=== PATIENT | male | born 1955 | race Two or more races ===

== ENCOUNTER 2024-05-31 14:07 | Inpatient (IN) ==
[2024-05-31] MEDS: MoRPHine SULFATE 4 MG/ML 1 ML CARP\\VIAL IV STA (14:34)
[2024-05-31] MEDS: ONDANSETRON INJ 2 MG/ML 2 ML VIAL IV STA (14:34)
[2024-05-31] MEDS: SODIUM CHLORIDE 0.9% 1,000 ML IV ONE (14:34)
--- NOTE | 2024-05-31 14:39 | Emergency Department Note ---
Impression & Plan Lower abdominal pain, Ileostomy present ED Provider Note NAME: SALO FLORES AGE: 68 SEX: M : 1955 ARRIVES VIA: Walk-In INFORMANT: [Patient] ED PROVIDER(S): [Saroj Nesbitt MD] CHIEF COMPLAINT: Abdominal pain HISTORY OF PRESENT ILLNESS: The patient is a 68-year-old male who was prepping his colon for a colonoscopy with a fleets enema. He had severe pain and presents for evaluation. The patient does have an ileostomy. He was having the procedure in order to determine if his ileostomy could be reversed. The patient has had a previous bowel perforation, he feels that may be the case again today. There has been no vomiting, no cough or cold or congestion. He was doing well until the enema administration. PMHx/PSHx/Social Hx: See Below PHYSICAL EXAM: GENERAL: Patient is in mild distress from pain. HEENT: No acute trauma, normocephalic atraumatic, mucous membranes moist, no nasal congestion. NECK: No stridor, no adenopathy, no meningismus, trachea is midline. LUNGS: Clear to auscultation bilaterally, no wheeze, no rhonchi, breath sounds equal. HEART: Without murmurs gallops or rubs, regular rate and rhythm. ABDOMEN: Soft, significantly tender to the lower abdomen. There is an ileostomy on the right with stool in the bag. Multiple old scars across abdomen noted. EXTREMITIES: No cyanosis, full range of motion of all the joints without pain or difficulty. NEUROLOGIC: Oriented x 3, no acute motor or sensory deficits, no focal weakness. SKIN: No jaundice, no diaphoresis. DIFFERENTIAL DIAGNOSIS: Bowel perforation, bowel obstruction, UTI, diverticulitis, among others. EMERGENCY DEPARTMENT PROCEDURES: MEDICAL DECISION MAKING: There is no leukocytosis or concerning anemia. There is a normal platelet count. Chemistry panel is pending. Lipase is pending. ECG shows a normal sinus rhythm, no ischemia. Cardiac enzyme testing x 1 is not consistent with acute cardiac injury. Chest x-ray did not show pneumonia or free air. Abdominal and pelvis CT did not show any obvious bowel perforation. No bowel obstruction. No acute surgical process per CT imaging. On exam, the patient was quite uncomfortable. He was tender in the lower abdomen. He had an ileostomy which showed findings of stool in the ostomy bag. He was not hypotensive or febrile. The patient was aggressively managed. He received IV morphine for pain, IV Zofran for nausea, he was given a liter of IV saline. He received IV Zosyn as empiric antibiotic coverage. The patient was seen by general surgery here in the ED. The patient was not an acute surgical candidate. Admission, IV antibiotic therapy, observation was recommended. At this point, the cause for his presentation is not clear. He, however, is not safe for discharge home. Further workup/observation is warranted. I spoke with the patient and vocational case manager. The on-call hospitalist was consulted. Prior/Outside records/notes reviewed: None ECG per my interpretation: Indication was abdominal pain. The ECG shows a normal sinus rhythm with a rate of 73. There is no ST elevation, no PVCs. The QTc is 442. Continuous Cardiac Monitoring per my interpretation: An order was placed for continuous cardiac monitoring. The monitor shows a rate of 74 with normal sinus rhythm. Imaging/x-ray results per my interpretation: Chest x-ray shows some chronic change, no focal pneumonia, no free air. Chronic Medical/Social conditions affecting care: History of colostomy Care/Management discussed with: General Surgery-Dr. Monique Pitts. Case management and the on-call hospitalist. Level of care consideration(s): After review of the information above and other included data: --I believe the patient requires escalation of care to admission Critical Care Note: I have personally spent 46 minutes of critical care time in the direct management of this patient. This includes bedside care, interpretation of diagnostic studies, and testing, discussion with consultants, patient, and family members, and other required patient management activities. This 46 minutes is in excess of all separately billable procedures. DISPOSITION: Admission Past Med/Surg History Problem List Abdominal pain Encounter for pre-operative examination Arthralgia Medical History Poor historian History of hallucinations ~2014 - after having his colon resection or his hernia/colostomy surgery. unsure why he hallucinated. "no one ever explained anything to me". History of alcoholism quit "a few years ago" (~2021?) Hx of hepatitis follows with [facility] - thinks he has Hepatitis B? Osteoarthritis Degenerative disc disease Chronic back pain Emphysema of lung Chronic obstructive pulmonary disease stable with daily inhaler Asthma "mild" Sleep apnea recently diagnosed, awaiting for f/u with doctor. no machine currently Hx of diverticulitis of colon (2014) hx of seeing [facility] CKD (chronic kidney disease) stage 3a - follows with [facility] History of hemodialysis single episode (~2014) after having hernia repair and colostomy surgery. had a single hemodiaylsis occurrence ([facility]) Hyperlipidemia History of throat cancer ~2020? surgical intervention only. Depression Anxiety Surgical History History of tonsillectomy ~2020 - [facility] History of esophagogastroduodenoscopy (EGD) History of radical dissection of left side of neck 2020? pt unsure of year. treated at [facility]. Hx of hernia repair (2014) s/p colon resection - treated at [facility] in [place]. during hernia repair, pt unsure of details but woke up with a colostomy bag. no other details given. History of colostomy during hernia repair (~2014) at [facility] in [place] - pt unsure of details or reason. Hx of colonoscopy History of colon resection (2014) [facility] Family History Other No family history of adverse response to anesthesia Social History Smoking Status: Never smoker Tobacco Type: Cigarettes Age Started Using Tobacco: 18; packs per day: 1; Cigarettes Per Day: 1ppd/advised; Second Hand Exposure: No; Do You Dip or Chew Tobacco: No; Hx Substance Use: Yes Last Used Substance Other:: daily (aware of policy) Substance Use Type Other:: medical marijuana daily/aware of policy Preferred Language: Wolof Communication Ability: Effective Corporate Manager Required: No Beliefs That Will Affect Care: None Current Living Situation: Alone Feels Safe at Home: Yes Assistive Devices: Denture - Upper and Denture - Lower Allergies Allergies Allergy/AdvReac Type Severity Reaction Status Date / Time Iodinated Contrast Media Allergy Severe hives/rash Verified 05/31/24 12:53 bupropion [From Wellbutrin] AdvReac Severe suicidal Verified 05/31/24 12:53 ideation Home Meds Home Medications Medication Instructions Recorded Confirmed cholecalciferol (vitamin D3) 50 50 mcg PO QAM 11/15/23 05/31/24 mcg (2,000 unit) capsule cyanocobalamin (vitamin B-12) 1,000 mcg PO QAM 11/15/23 05/31/24 1,000 mcg capsule multivitamin 1 tab PO QAM 11/15/23 05/31/24 sertraline 100 mg tablet (Zoloft) 200 mg PO QAM 11/15/23 05/31/24 buspirone 10 mg tablet 10 mg PO BID 04/21/24 05/31/24 echinacea 125 mg capsule 125 mg PO QAM 04/21/24 05/31/24 ipratropium bromide 21 mcg (0.03 2 spray intranasal QAM 04/21/24 05/31/24 %) nasal spray olanzapine 15 mg tablet (Zyprexa) 15 mg PO HS Sleep 04/21/24 05/31/24 umeclidinium 62.5 mcg-vilanterol 1 inh inhalation QA 04/21/24 05/31/24 25 mcg/actuation powdr for inhalation (Anoro Ellipta) Results & Data (ED) Vital Signs Vital Signs - 24 hr 05/31/24 14:18 05/31/24 14:24 05/31/24 16:22 Temperature 36.5 C Temperature Source Oral Pulse Rate 73 74 Pulse Rate [Apical] 80 Respiratory Rate 18 23 Respiratory Effort / Characteristics Non-Labored Spontaneous Respiratory Depth Normal Blood Pressure 176/102 H Blood Pressure [Right Arm] 168/72 H Blood Pressure Mean 126 Blood Pressure Mean [Right Arm] 104 Blood Pressure Position Lying Pulse Oximetry 93 92 Oxygen Delivery Method Room Air Room Air Sepsis Recent Fever Within 48 Hours No Sepsis New/Unexplained Change in Mental Status No Sepsis Action Taken by Nursing No Action Required Home Medications Current Medication List: was personally reviewed by me Laboratory Data Attestation: I reviewed the patient's lab results. 05/31/24 14:19 05/31/24 16:25 Lab Results 05/31/24 05/31/24 Range/Units 14:19 16:25 WBC 9.76 (4.8-10.8) K/ul RBC 5.13 (4.70-6.10) M/uL Hgb 15.1 (14.0-18.0) g/dl Hct 43.6 (42.0-52.0) % MCV 85.0 (80.0-100.0) fL MCH 29.4 (25.0-34.0) pg MCHC 34.6 (32.0-36.0) g/dL RDW Std Deviation 41.1 (36.4-46.3) fL RDW Coeff of Renae 13.2 (11.5-14.5) % Plt Count 251 (130-400) K/uL MPV 11.1 (9.4-12.4) fL Immature Gran % (Auto) 0.1 % Neut % (Auto) 65.5 % Lymph % (Auto) 26.3 % [place] % (Auto) 5.2 % Eos % (Auto) 1.6 % Baso % (Auto) 1.3 % Neut # (Auto) 6.38 (1.40-6.50) K/uL Lymph # (Auto) 2.57 (1.20-3.40) K/uL [place] # (Auto) 0.51 (0.11-0.59) K/uL Eos # (Auto) 0.16 (0.00-0.50) K/uL Baso # (Auto) 0.13 (0.00-0.20) K/uL Immature Gran # (Auto) 0.01 (0.01-0.20) K/uL Sodium Cancelled Potassium Cancelled Chloride Cancelled Carbon Dioxide Cancelled Anion Gap Cancelled BUN Cancelled Creatinine Cancelled Est Cr Clr Drug Dosing Cancelled eGFR Cancelled BUN/Creatinine Ratio Cancelled Glucose Cancelled Calcium Cancelled Magnesium Cancelled Total Bilirubin Cancelled AST Cancelled ALT Cancelled Alkaline Phosphatase Cancelled Troponin I High Sens Cancelled 8.2 Total Protein Cancelled Albumin Cancelled Globulin Cancelled Albumin/Globulin Ratio Cancelled Lipase Cancelled Administered Medications Morphine Sulfate (Morphine Sulfate 4 Mg/Ml 1 Ml Carp\\Vial) 4 mg IV Q15M PRN PRN Reason: Pain Stop: 06/14/24 14:22 Last Admin: 05/31/24 15:26 Dose: 4 mg Documented By: JANIS Discontinued Medications Hydromorphone HCl (Hydromorphone Inj 0.5 Mg/0.5 Ml Syr) 0.25 mg IV NOW STA Stop: 05/31/24 17:13 Last Admin: 05/31/24 17:24 Dose: 0.25 mg Documented By: JANIS Sodium Chloride (Nss) 1,000 mls @ 999 mls/hr IV .Q1H1M ONE Stop: 05/31/24 15:23 Last Infusion: 05/31/24 17:45 Dose: Infused Documented By: Admin: 05/31/24 14:34 Dose: 999 mls/hr Documented By: PHIL Piperacillin Sod/Tazobactam Sod (Zosyn) 4.5 gm in 100 mls @ 200 mls/hr IV NOW ONE Stop: 05/31/24 15:34 Last Infusion: 05/31/24 15:59 Dose: Infused Documented By: Admin: 05/31/24 15:29 Dose: 200 mls/hr Documented By: JANIS Morphine Sulfate (Morphine Sulfate 4 Mg/Ml 1 Ml Carp\\Vial) 4 mg IV NOW STA Stop: 05/31/24 14:24 Last Admin: 05/31/24 14:34 Dose: 4 mg Documented By: PHIL Ondansetron HCl (Ondansetron Inj 2 Mg/Ml 2 Ml Vial) 4 mg IV NOW STA Stop: 05/31/24 14:24 Last Admin: 05/31/24 14:34 Dose: 4 mg Documented By: PHIL Imaging Data Radiologist's Impression: Abdomen/Pelvis CT 05/31/24 14:[address] WITHOUT CONTRAST CT DOSE: 868.74 mGy.cm HISTORY: Abdominal pain poss perf TECHNIQUE: Multiaxial CT images of the abdomen and pelvis were performed without contrast. Sagittal and coronal reconstructions were done. A dose lowering technique was utilized adhering to the principles of ALARA. COMPARISON STUDY: None FINDINGS: The lung bases are negative. The bone windows demonstrate bilateral L5 pars defects with a grade 1 spondylolisthesis of L5 on S1. There is no evidence of free air. There is pericolonic inflammation involving the splenic flexure of the colon with no associated diverticula identified. There is no evidence of bowel obstruction. There is a large ventral abdominal wall hernia containing numerous loops of large and small bowel. There is a stone in the neck of the gallbladder. There is no gallbladder wall thickening or pericholecystic fluid. There is no gallbladder or bile duct distention. There is no hepatic lesion identified on this noncontrast study. There is no hydronephrosis. There are bilateral renal vascular calcifications. There is fatty infiltration of both limbs of the left adrenal gland. The pancreas demonstrates fatty atrophy. There are no splenic lesions identified. There is no aortic aneurysm. The origin of the celiac axis is tortuous and ill- defined. 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 There is no aortic aneurysm. There is no periaortic adenopathy. In the pelvis, there is asymmetric thickening of the orona of the distal sigmoid colon suspicious for a mass. The appendix is not identified. There is mild diffuse bladder wall thickening. There is no significant prostate gland enlargement. IMPRESSION: No evidence of bowel obstruction or perforation. Pericolonic inflammation in the vicinity of the splenic flexure without a definite diverticulum present. Possibilities include occult diverticulitis, epiploic appendagitis and focal colitis. Asymmetric thickening of the wall of the sigmoid colon suspicious for a mass. Cholelithiasis. Large ventral abdominal wall hernia. 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 Please refer to the body the report for additional nonacute findings. ACT 112: Negative or not required by law. The above report was generated using voice recognition software. It may contain grammatical, syntax or spelling errors. Electronically signed by: Rossana Madrid M.D. 05/31/2024 3:17 PM Chest X-Ray 05/31/24 14:24 XR chest 1V portable CLINICAL HISTORY: abd pain COMPARISON STUDY: None FINDINGS: Single view portable chest demonstrates hyperlucency in the upper lung zones with diaphragmatic flattening suggesting emphysema. There is no focal airspace opacity or pleural effusion. There is no atelectasis or pneumothorax. The heart and pulmonary vascularity are unremarkable. IMPRESSION: No acute process; probable COPD. ACT 112: Negative or not required by law. Electronically signed by: Rossana Madrid M.D. 05/31/2024 3:18 PM Discharge Plan Visit Data Chief Complaint: Abdominal Pain Stated Complaint: ENDO LAB ED Provider: Saroj Nesbitt Discharge Problem: Lower abdominal pain, Ileostomy present Patient Disposition: Admitted As Inpatient Condition: Fair Forms Stand Alone Forms: Status Overload Prescriptions Prescriptions: No Action sertraline [Zoloft] 100 mg tablet 200 mg PO QAM cholecalciferol (vitamin D3) 50 mcg (2,000 unit) capsule 50 mcg PO QAM multivitamin Tablet 1 tab PO QAM cyanocobalamin (vitamin B-12) 1,000 mcg capsule 1,000 mcg PO QAM buspirone [BuSpar] 10 mg Tablet 10 mg PO BID olanzapine [Zyprexa] 15 mg Tablet 15 mg PO HS ipratropium bromide 21 mcg (0.03 %) [employer],Non-Aerosol 2 spray INTRANASAL QAM Rx Instructions: administer into each nostril Anoro Ellipta 62.5-25 mcg/actuation Blister With Device 1 inh INHALATION QAM echinacea 125 mg Capsule 125 mg PO QAM Rx Instructions: administer with meals Referrals Referrals: Graeme Méndez M.D. [Outside Practitioners] -
[2024-05-31 14:56] LABS: Basophils # (auto) 0.13 K/uL (0.00-0.20); Basophils % (auto) 1.3 %; Eosinophils # (auto) 0.16 K/uL (0.00-0.50); Eosinophils % (auto) 1.6 %; Hematocrit (blood only) 43.6 % (42.0-52.0); Hemoglobin 15.1 g/dl (14.0-18.0); Immature Granulocytes # (auto) 0.01 K/uL (0.01-0.20); Immature Granulocytes % (auto) 0.1 %; Lymphocytes # (auto) 2.57 K/uL (1.20-3.40); Lymphocytes % (auto) 26.3 %; Mean Corpuscular Hemoglobin 29.4 pg (25.0-34.0); Mean Corpuscular Hgb Conc 34.6 g/dL (32.0-36.0); Mean Platelet Volume 11.1 fL (9.4-12.4); Monocytes # (auto) 0.51 K/uL (0.11-0.59); Monocytes % (auto) 5.2 %; Neutrophils # (auto) 6.38 K/uL (1.40-6.50); Neutrophils % (auto) 65.5 %; Platelet Count 251 K/uL (130-400); RDW Coefficient of Variation 13.2 % (11.5-14.5); RDW Standard Deviation 41.1 fL (36.4-46.3); Red Blood Count 5.13 M/uL (4.70-6.10); White Blood Count 9.76 K/ul (4.8-10.8)
--- NOTE | 2024-05-31 15:19 | CT Scan Report ---
ABDOMEN AND PELVIS CT WITHOUT CONTRAST CT DOSE: 868.74 mGy.cm HISTORY: Abdominal pain poss perf TECHNIQUE: Multiaxial CT images of the abdomen and pelvis were performed without contrast. Sagittal and coronal reconstructions were done. A dose lowering technique was utilized adhering to the princip les of NAHUM. COMPARISON STUDY: None FINDINGS: The lung bases are negative. The bone windows demonstrate bilateral L5 pars defects with a grade 1 spondylolisthesis of L5 on S1. There is no evidence of free air. There is pericolonic inflammation involving the splenic flexure of the colon with no associated diverticula identified. There is no evidence of bowel obstruction. There is a large ventral abdominal wall hernia containing numerous loops of large and small bowel. There is a stone in the neck of the gallbladder. There is no gallbladder wall thickening or perichole cystic fluid. There is no gallbladder or bile duct distention. There is no hepatic lesion identified on this noncontrast study. There is no hydronephrosis. There ar e bilateral renal vascular calcifications. There is fatty infiltration of both limbs of the left adrenal gland. The pancreas demonstrates fatty atrophy. There are no splenic lesions identified. There is no aortic aneurysm. The origin of the celiac axis is tortuous and ill-defined. There is a fu siform aneurysm of the proximal superior mesenteric artery. There is no aortic aneurysm. There is no periaortic adenopathy. In the pelvis, there is asymmetric thickening of the orona of the distal sigmoid colon suspicious for a mass. The appendix is not identified. There is mild diffuse bladder wall thickening. There is no s ignificant prostate gland enlargement. IMPRESSION: No evidence of bowel obstruction or perforation. Pericolonic inflammation in the vicinity of the splenic flexure without a definite diverticulum prese nt. Possibilities include occult diverticulitis, epiploic appendagitis and focal colitis. Asymmetric thickening of the wall of the sigmoid colon suspicious for a mass. Cholelithiasis. Large ventral abdominal wall hernia. 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 Please refer to the body the report for additional nonacute findings. ACT 112: Negative or not required by law. The above report was generated using voice recognition software. It may contain grammatical, syntax o r spelling errors. Electronically signed by: Rossana Madrid M.D. 05/31/2024 3:17 PM
--- NOTE | 2024-05-31 15:20 | XRay Report ---
XR chest 1V portable CLINICAL HISTORY: abd pain COMPARISON STUDY: None FINDINGS: Single view portable chest demonstrates hyperlucency in the upper lung zones with diaphragm atic flattening suggesting emphysema. There is no focal airspace opacity or pleural effusion. There i s no atelectasis or pneumothorax. The heart and pulmonary vascularity are unremarkable. IMPRESSION: No acute process; probable COPD. ACT 112: Negative or not required by law. Electronically signed by: Rossana Madrid M.D. 05/31/2024 3:18 PM
[2024-05-31] MEDS: MoRPHine SULFATE 4 MG/ML 1 ML CARP\\VIAL IV PRN (15:26)
[2024-05-31] MEDS: PIPERACILLIN/TAZOBACTAM 4.5 GM/100 ML BAG IV ONE (15:29)
--- NOTE | 2024-05-31 15:54 | Electrocardiogram Report ---
Test Reason : Blood Pressure : */* mmHG Vent. Rate : 73 BPM Atrial Rate : 73 BPM P-R Int : 144 ms QRS Dur : 96 ms QT Int : 402 ms P-R-T Axes : 82 96 73 degrees QTcB Int : 442 ms Normal sinus rhythm Rightward axis Normal ECG No previous ECGs available Confirmed by Alex Potts ([id number]) on 05/31/2024 3:53:50 PM Referred By: Enrique Forde Confirmed By: Alex Potts
--- NOTE | 2024-05-31 16:38 | Surgery Consultation ---
Date of Consultation May 31, 2024 Assessment & Plan (1) Abdominal pain: Patient with c/o abdominal pain. The patient reports he was to have an outpatient sigmoidoscopy at [facility] in [place] today which he was unable to make after experiencing an acute onset of abdominal pain after enema administration. The patient denies fever, chills, emesis reports he had some sort of bowel movement per rectum while in the ER. He reports tenderness to palpation in bilateral lower quadrants. On exam he is in NAD, VSS, WBC wnl. abd is non distended, soft TTP bilateral lower quadrants, prior surgical scarring and ostomy noted with stool present in bag. CT scan not showing concerns free fluid or free air, but does note "Pericolonic inflammation in the vicinity of the splenic flexure without a definite diverticulum present. Asymmetric thickening of the wall of the sigmoid colon suspicious for a mass. Large ventral abdominal wall hernia. 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 Would recommend admitting the patient to medicine for observation, IV fluids, Keep npo at present time. The hernia noted on CT scan is non-obstructing, and the patient should follow up with vascular surgery at some point for the aneurysm of SMA. General surgery will follow. Patient seen and examined with Dr Marie and she agreed with the above. Supervising Physician Co-Signing Physician Notes I have seen and examined this patient with the surgical PA and I agree with this plan History of Present Illness Reason for Consultation: abdominal pain after enema administration Requesting Physician: Dr Nesbitt History of Present Illness Patient is a 68 yo male with PMH arthralgia, CKD, depression, anxiety, diverticulitis, NHI, asthma, COPD, emphysema, chronic back pain, DDD, hepatitis, ostomy, alcoholism, hallucinations that presented the the [facility] ER with c/o abdominal pain. The patient reports he was to have an outpatient sigmoidoscopy at [facility] in [place] today which he was unable to make after experiencing an acute onset of abdominal pain after enema administration. He has a history of bowel resection ten years ago and developed a hernia. He has been seen at [facility] for possible ostomy reversal which is why he was having a sigmoidoscopy. The patient denies fever, chills, emesis reports he had some sort of bowel movement per rectum while in the ER. He reports tenderness to palpation in bilateral lower quadrants. Allergies Allergy/AdvReac Type Severity Reaction Status Date / Time Iodinated Contrast Media Allergy Severe hives/rash Verified 05/31/24 12:53 bupropion [From Wellbutrin] AdvReac Severe suicidal Verified 05/31/24 12:53 ideation Home Medications Medication Instructions Recorded Confirmed Type cholecalciferol (vitamin D3) 50 50 mcg PO QAM 11/15/23 05/31/24 History mcg (2,000 unit) capsule cyanocobalamin (vitamin B-12) 1,000 mcg PO QAM 11/15/23 05/31/24 History 1,000 mcg capsule multivitamin 1 tab PO QAM 11/15/23 05/31/24 History sertraline 100 mg tablet (Zoloft) 200 mg PO QAM 11/15/23 05/31/24 History buspirone 10 mg tablet 10 mg PO BID 04/21/24 05/31/24 History echinacea 125 mg capsule 125 mg PO QAM 04/21/24 05/31/24 History ipratropium bromide 21 mcg (0.03 2 spray intranasal QAM 04/21/24 05/31/24 History %) nasal spray olanzapine 15 mg tablet (Zyprexa) 15 mg PO HS Sleep 04/21/24 05/31/24 History umeclidinium 62.5 mcg-vilanterol 1 inh inhalation QAM 04/21/24 05/31/24 History 25 mcg/actuation powdr for inhalation (Anoro Ellipta) Patient History Medical History Poor historian History of hallucinations ~2014 - after having his colon resection or his hernia/colostomy surgery. unsure why he hallucinated. "no one ever explained anything to me". History of alcoholism quit "a few years ago" (~2021?) Hx of hepatitis follows with [facility] - thinks he has Hepatitis B? Osteoarthritis Degenerative disc disease Chronic back pain Emphysema of lung Chronic obstructive pulmonary disease stable with daily inhaler Asthma "mild" Sleep apnea recently diagnosed, awaiting for f/u with doctor. no machine currently Hx of diverticulitis of colon (2014) hx of seeing [facility] CKD (chronic kidney disease) stage 3a - follows with [facility] History of hemodialysis single episode (~2014) after having hernia repair and colostomy surgery. had a single hemodiaylsis occurrence ([facility]) Hyperlipidemia History of throat cancer ~2020? surgical intervention only. Depression Anxiety Surgical History History of tonsillectomy ~2020 - [facility] History of esophagogastroduodenoscopy (EGD) History of radical dissection of left side of neck 2020? pt unsure of year. treated at [facility]. Hx of hernia repair (2014) s/p colon resection - treated at [facility] in [place]. during hernia repair, pt unsure of details but woke up with a colostomy bag. no other details given. History of colostomy during hernia repair (~2014) at [facility] in [place] - pt unsure of details or reason. Hx of colonoscopy History of colon resection (2014) [facility] Family History Other No family history of adverse response to anesthesia Social History Smoking Status: Never smoker Tobacco Type: Cigarettes Age Started Using Tobacco: 18; packs per day: 1; Cigarettes Per Day: 1ppd/advised; Second Hand Exposure: No; Do You Dip or Chew Tobacco: No; Hx Substance Use: Yes Last Used Substance Other:: daily (aware of policy) Substance Use Type Other:: medical marijuana daily/aware of policy Preferred Language: Thai Communication Ability: Effective Pearl Technician Required: No Beliefs That Will Affect Care: None Current Living Situation: Alone Feels Safe at Home: Yes Assistive Devices: Denture - Upper and Denture - Lower Review of Systems Constitutional: no fever and no chills Respiratory: no dyspnea Cardiovascular: no chest pain Gastrointestinal: + abdominal pain; no nausea and no vomit ing Musculoskeletal: no problem reported Physical Exam Constitutional: cooperative and comfortable; no acute distress Respiratory: normal respiratory effort and able to speak in complete sentences; no respiratory distress Cardiovascular: Rate/Rhythm: regular rate Gastrointestinal (Abdomen): Inspection/Auscultation: + abdominal surgical scar; abdomen not distended Percussion/Palpation: + abdomen tender and abdomen soft Psychiatric: Orientation: alert and oriented x 3 Results & Data Vital Signs (Past 12 Hours) Vital Signs Temp Pulse Resp BP Pulse Ox O2 Del Method 05/31/24 14:24 97.7 F 74 18 176/102 H 93 Room Air 05/31/24 14:18 73 Diagnostic Findings [place], [place] [phone] CT Scan Report Patient: SALO FLORES Admit Date: 05/31/24 MR#: [id number] Address1: [address] [place] [address] Acct ID:[id number] Address2: [address] Date: 1955 [facility] Zip: [place] [address] Age: 68 Location: ED Sex: M Room/Bed: Att Phy: Diagnosis: ENDO LAB Rosina Phy: PCP,NO Service Date: 05/31/24 Fam Phy: Interpreting Phy: Rossana Madrid MDAdmit Phy: Ordering Phy: Saroj Nesbitt M.D. cc: ~ ABDOMEN AND PELVIS CT WITHOUT CONTRAST CT DOSE: 868.74 mGy.cm HISTORY: Abdominal pain poss perf TECHNIQUE: Multiaxial CT images of the abdomen and pelvis were performed without contrast. Sagittal and coronal reconstructions were done. A dose lowering technique was utilized adhering to the principles of ALARA. COMPARISON STUDY: None FINDINGS: The lung bases are negative. The bone windows demonstrate bilateral L5 pars defects with a grade 1 spondylolisthesis of L5 on S1. There is no evidence of free air. There is pericolonic inflammation involving the splenic flexure of the colon with no associated diverticula identified. There is no evidence of bowel obstruction. There is a large ventral abdominal wall hernia containing numerous loops of large and small bowel. There is a stone in the neck of the gallbladder. There is no gallbladder wall thickening or pericholecystic fluid. There is no gallbladder or bile duct distention. There is no hepatic lesion identified on this noncontrast study. There is no hydronephrosis. There are bilateral renal vascular calcifications. There is fatty infiltration of both limbs of the left adrenal gland. The pancreas demonstrates fatty atrophy. There are no splenic lesions identified. There is no aortic aneurysm. The origin of the celiac axis is tortuous and ill- defined. 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 There is no aortic aneurysm. There is no periaortic adenopathy. In the pelvis, there is asymmetric thickening of the orona of the distal sigmoid colon suspicious for a mass. The appendix is not identified. There is mild diffuse bladder wall thickening. There is no significant prostate gland enlargement. IMPRESSION: No evidence of bowel obstruction or perforation. Pericolonic inflammation in the vicinity of the splenic flexure without a definite diverticulum present. Possibilities include occult diverticulitis, epiploic appendagitis and focal colitis. Asymmetric thickening of the wall of the sigmoid colon suspicious for a mass. Cholelithiasis. Large ventral abdominal wall hernia. 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 Please refer to the body the report for additional nonacute findings. ACT 112: Negative or not required by law. The above report was generated using voice recognition software. It may contain grammatical, syntax or spelling errors. Electronically signed by: Rossana Madrid M.D. 05/31/2024 3:17 PM Dictated: 05/31/24 1502 Transcribed: 05/31/24 1502 Results CBC w Diff Results: RBC 5.13 M/uL (4.70-6.10) 05/31/24 WBC 9.76 K/ul (4.8-10.8) 05/31/24 Hgb 15.1 g/dl (14.0-18.0) 05/31/24 Hct 43.6 % (42.0-52.0) 05/31/24 MCV 85.0 fL (80.0-100.0) 05/31/24 MCH 29.4 pg (25.0-34.0) 05/31/24 MCHC 34.6 g/dL (32.0-36.0) 05/31/24 RDW Standard Deviation 41.1 fL (36.4-46.3) 05/31/24 RDW Coefficient of Variation 13.2 % (11.5-14.5) 05/31/24 Plt Count 251 K/uL (130-400) 05/31/24 MPV 11.1 fL (9.4-12.4) 05/31/24 Neutrophils (%) (Auto) 65.5 % 05/31/24 Lymphocytes (%) (Auto) 26.3 % 05/31/24 Monocytes # (Auto) 0.51 K/uL (0.11-0.59) 05/31/24 Eosinophils # (Auto) 0.16 K/uL (0.00-0.50) 05/31/24 Immature Granulocyte % (Auto) 0.1 % 05/31/24 Neutrophils # (Auto) 6.38 K/uL (1.40-6.50) 05/31/24 Lymphocytes # (Auto) 2.57 K/uL (1.20-3.40) 05/31/24 Monocytes # (Auto) 0.51 K/uL (0.11-0.59) 05/31/24 Eosinophils # (Auto) 0.16 K/uL (0.00-0.50) 05/31/24 Basophils # (Auto) 0.13 K/uL (0.00-0.20) 05/31/24 Immature Granulocyte # (Auto) 0.01 K/uL (0.01-0.20) 5 PG Care Time/CCT Total # of Minutes Spent Total Time Spent with Patient: Total time spent is greater than 50% in coordination of care (as documented) at patient's floor/unit and/or counseling patient: Coding Level of Care Code 58908 INT INP/OBS CARE 140MIN Diagnoses Abdominal pain R10.9
--- NOTE | 2024-05-31 17:01 | History & Physical Report ---
Date of Service May 31, 2024 Assessment & Plan (1) Abdominal pain: (2) Abnormal CT scan, pelvis: (3) Ileostomy status: (4) Tobacco dependence: (5) Ventral hernia without obstruction or gangrene: (6) History of colon resection: (7) Chronic obstructive pulmonary disease: (8) Uvular hypertrophy: (9) Chronic kidney disease, stage 3a: (10) History of alcohol dependence: Plan 68yo male with history of colonic [facility], ventral hernia, ileostomy creation at [facility] in 2014 (details uncertain), severe anxiety, tobacco dependence, ?hepatitis B, throat cancer s/p radical neck dissection, CKD stage 3, and prior alcohol use presents with severe lower abdominal pain. Patient was scheduled to have a sigmoidoscopy by Dr Enrique Forde, [facility], to check the anatomy of presumed Blackmon's pouch and as a requisite for possible ileostomy reversal at in the future. In preparation for his sigmoidoscopy the patient was ordered [address] Forde to empty the contents of his colon/Blackmon's pouch. The patient went to the bathroom and proceeded to give himself the first enema. Within seconds he had severe abdominal pain in his lower quadrants along with sweats & nausea. Admission CT abd/pelvis with ?colitis at the splenic flexure as well as a possible mass in the sigmoid colon. NO evidence of perforation / free air was seen. NO evidence of obstruction from his ventral hernia. #Severe abdominal pain - * etiology - Colitis? Ischemic event? Spasm? Perforation that cannot be seen on imaging? Combination of factors? * appreciate general surgery consult * recommendations from surgery - NPO status, IV antibiotics (Zosyn 4.5gm q8h), pain control (dilaudid 0.25mg q4h prn), IV fluids (D5NS), serial exams * will also consult Dr Forde from [facility] #Question of sigmoid mass as seen on CT - * risk factors for colon ca - family history, long-standing tobacco dependence, etc. * check CEA in am * consult Dr Forde from [facility] #Ileostomy status - * no recent issues per the patient * no history of dumping * patient desired ileostomy reversal hence the sigmoidoscopy planned for today (see HPI) #Ventral hernia - * no evidence of obstruction on CT today #Tobacco dependence - * patient declined nicoderm #H/o alcohol dependence - * patient states he has not drank etoh in several years * will place on AWSS protocol just in case this is not true * no evidence of etoh withdrawal at time of admission #Question of Hepatitis B infection - * liver is anatomically normal on CT today * LFTs are wnl * previously followed by [facility] in [place] for this?? * will check HepBSag and HepC Ab in am #Mood disorder/anxiety - * cont zyprexa 15mg HS * cont sertraline 200mg AM * cont buspar BID #COPD - * no exacerbation at this time * cont Anoro Ellipta once daily #Uvular hypertrophy vs mass - * uvula appears unusual on exam * he previously followed with ENT for his prior throat cancer * recommend f/u with ENT after d/c for the uvula #CKD stage 3a - * Cr 1.5 today and appears at baseline * recheck BMP in am for stability #DVT proph - * defer on chemical means for now in the event he needs a procedure in the next few days #THC use - * reports use of medical THC for chronic back pain * given reports of ?HepB infection will check urine drug screen to r/o illicit drugs History of Present Illness Chief Complaint: severe lower quadrant abdominal pain Primary Care Provider: NO PCP 68yo male with history of colonic [facility], ventral hernia, ileostomy creation at [facility] in 2015 (details uncertain), severe anxiety, tobacco dependence, ?heparitis B, throat cancer s/p radical neck dissection, CKD stage 3, and prior alcohol use presents with severe lower abdominal pain. Patient was scheduled to have a sigmoidoscopy by Dr Enrique Forde, [facility], to check the anatomy of presumed Blackmon's pouch and as a requisite for possible ileostomy reversal at in the future. In preparation for his sigmoidoscopy the patient was ordered [address] Forde to empty the contents of his colon/Blackmon's pouch. The patient went to the bathroom and proceeded to give himself the first enema. Within seconds he had severe abdominal pain in his lower quadrants along with sweats & nausea. The nursing staff in the endoscopy suite assisted him and he was brought to the ER for evaluation. CT scan of the abdomen/pelvis did not show perforation/free air but did show ? of a mass in the sigmoid colon as well as inflammatory changes in the splenic flexure of the colon. This CT also demonstrated his known ventral hernia containing multiple loops of bowel but no signs of obstruction. During my assessment he was writhing in pain despite having had 2 doses of IV morphine. He was also given IV zosyn x 1. He has not had any vomiting. Prior to the enema today he has had NO abdominal pain at home, no changes in his ileostomy output (empties the bag 4-5 times/day), and no blood/mucous via his [place] rectum. He does report he is passing contents of the enema at this time. About 1 year ago he lost about 30 pounds of weight, but since then has not had any further weight loss. He reports no changes in appetite. Records scanned in the EMR dated 04/2024 from colorectal surgery discuss possible ileostomy reversal. In preparation for such he was asked to have a sigmoidoscopy; hence that is why he presented today to [facility] End[facility] suite for his procedure. The details of his past surgical history are not fully certain. By report, in ~2014, he had complications from diverticulitis (diverticular stricture??) [facility] Sometime later on in 2014 he developed a ventral hernia and went to [facility] for hernia repair. It is unclear if he had 1 or 2 surgeries during that stay, but one of the surgeries led to ileostomy creation. It is also unclear if the ventral hernia in 2014 was ever repaired. Allergies Allergy/AdvReac Type Severity Reaction Status Date / Time Iodinated Contrast Media Allergy Severe hives/rash Verified 05/31/24 12:53 bupropion [From Wellbutrin] AdvReac Severe suicidal Verified 05/31/24 12:53 ideation Home Medications Medication Instructions Recorded Confirmed Type cholecalciferol (vitamin D3) 50 50 mcg PO QAM 11/15/23 05/31/24 History mcg (2,000 unit) capsule cyanocobalamin (vitamin B-12) 1,000 mcg PO QAM 11/15/23 05/31/24 History 1,000 mcg capsule multivitamin 1 tab PO QAM 11/15/23 05/31/24 History sertraline 100 mg tablet (Zoloft) 200 mg PO QAM 11/15/23 05/31/24 History buspirone 10 mg tablet 10 mg PO BID 04/21/24 05/31/24 History echinacea 125 mg capsule 125 mg PO QAM 04/21/24 05/31/24 History ipratropium bromide 21 mcg (0.03 2 spray intranasal QAM 04/21/24 05/31/24 History %) nasal spray olanzapine 15 mg tablet (Zyprexa) 15 mg PO HS Sleep 04/21/24 05/31/24 History umeclidinium 62.5 mcg-vilanterol 1 inh inhalation QAM 04/21/24 05/31/24 History 25 mcg/actuation powdr for inhalation (Anoro Ellipta) Past Med/Surg History Problem List (Updated 05/31/24 @ 19:49 by Patrick Dominique MD) History of alcohol dependence Chronic kidney disease, stage 3a Uvular hypertrophy Chronic obstructive pulmonary disease stable with daily inhaler History of colon resection (2014) [facility] [place] Ventral hernia without obstruction or gangrene Abnormal CT scan, pelvis Tobacco dependence Ileostomy status Bowel perforation age 19; had small bowel resection? [facility] Abdominal pain Encounter for pre-operative examination Arthralgia Medical History (Updated 05/31/24 @ 19:49 by Patrick Dominique MD) CKD (chronic kidney disease) stage 3a - follows with [facility] Poor historian History of hallucinations ~2014 - after having his colon resection or his hernia/colostomy surgery. unsure why he hallucinated. "no one ever explained anything to me". History of alcoholism quit "a few years ago" (~2021?) Hx of hepatitis follows with [facility] - thinks he has Hepatitis B? Osteoarthritis Degenerative disc disease Chronic back pain Emphysema of lung Asthma "mild" Sleep apnea recently diagnosed, awaiting for f/u with doctor. no machine currently Hx of diverticulitis of colon (2014) hx of seeing [facility] History of hemodialysis single episode (~2014) after having hernia repair and colostomy surgery. had a single hemodiaylsis occurrence ([facility]) Hyperlipidemia History of throat cancer ~2020? surgical intervention only. Depression Anxiety Surgical History (Updated 05/31/24 @ 19:49 by Patrick Dominique MD) [facility] History of esophagogastroduodenoscopy (EGD) History of radical dissection of left side of neck 2020? pt unsure of year. [facility]. Hx of hernia repair (2014) s/p colon resection - treated at [facility]. during hernia repair, pt unsure of details but woke up with a colostomy bag. no other details given. History of colostomy during hernia repair (~2014) at [facility] in [place] - pt unsure of details or reason. Hx of colonoscopy Family History Mother Breast cancer Heart disease age 61 Sister Bladder cancer Rectal cancer Other No family history of adverse response to anesthesia Social History (Updated 05/31/24 @ 19:44 by Patrick Dominique MD) Smoking Status: Current every day smoker Tobacco Type: Cigarettes Age Started Using Tobacco: 18; packs per day: 1; Cigarettes Per Day: 1 ppd; Second Hand Exposure: Yes; Do You Dip or Chew Tobacco: No; Tobacco Cessation Education Requested by Patient: No Hx Alcohol Use: No Hx Substance Use: Yes Non-Prescribed Medications: Marijuana Last Used Substance: Unknown Last Used Substance Other:: daily (aware of policy) Substance Use Type Other:: medical marijuana daily/aware of policy Preferred Language: Persian Communication Ability: Effective M1A1 Tank Crewman Required: No Beliefs That Will Affect Care: None marital status: Single Current Living Situation: Alone Current Living Situation Comment: apartment in [place] current occupational status: disabled current occupation: body work on cars, sand blasting, other odd jobs How many Children do You have: 1 How many Children do You have Comment: daughter, but is estranged Other Information That Helps Us Care for You: No Feels Safe at Home: Yes Safety Concerns: Feels Safe At This Time Assistive Devices: Glasses and Hearing Aid - Bilateral Review of Systems Review of Systems: gen - no fevers or chills but did have sweats when he developed abdominal pain; 30 pounds weight loss 1 year ago, but none since eyes - no visual changes HENT - no recent sore throat or URI CV - no chest pains pulm - chronic dyspnea on exertion GI - severe lower quadrant abdominal pain starting today after enema per rectum; no vomiting; +nausea; no blood per ileostomy or per rectum - no LUTS musculo - chronic low back pain neuro - no headaches skin - no rash psych - severe anxiety Physical Exam Physical Exam: gen - looks ill, sleepy, disheveled; multiple times he was in pain during the exam eyes - PERRL HENT - mouth - MM dry; uvula hypertrophy vs nodule; posterior throat is erythematous neck - scarring present left neck, no lymph nodes, no masses, no JVD heart - RRR, s1 s2, 1/6 systolic murmur LSB lungs - CTA b/l, no rales or wheeze abd - soft, large reducible ventral hernia present central abdomen, BS+, ileostomy right side of abdomen with liquid stool in ostomy bag; VERY tender b/l lower quadrants but no rebound or peritoneal signs; multiple scars central abdomen ext - no edema, pulses of feet 2+ b/l neuro - strength 5/5 x 4 exts, speech fluent/clear, no facial droop skin - no rash psych - poor historian, but a/o x 3 Results & Data Results & Data Vital Signs (Past 12 Hours) Vital Signs Temp Pulse Pulse Resp BP BP Pulse Ox 05/31/24 16:22 80 23 168/72 H 92 05/31/24 14:24 36.5 C 74 18 176/102 H 93 05/31/24 14:18 73 O2 Del Method 05/31/24 16:22 Room Air 05/31/24 14:24 Room Air 05/31/24 14:18 Laboratory Results Laboratory Results - last 24 hr 05/31/24 05/31/24 14:19 16:25 WBC 9.76 RBC 5.13 Hgb 15.1 Hct 43.6 MCV 85.0 MCH 29.4 MCHC 34.6 RDW Std Deviation 41.1 RDW Coeff of Renae 13.2 Plt Count 251 MPV 11.1 Immature Gran % (Auto) 0.1 Neut % (Auto) 65.5 Lymph % (Auto) 26.3 [place] % (Auto) 5.2 Eos % (Auto) 1.6 Baso % (Auto) 1.3 Neut # (Auto) 6.38 Lymph # (Auto) 2.57 [place] # (Auto) 0.51 Eos # (Auto) 0.16 Baso # (Auto) 0.13 Immature Gran # (Auto) 0.01 Sodium Cancelled 143 Potassium Cancelled 4.3 Chloride Cancelled 107 Carbon Dioxide Cancelled 23 Anion Gap Cancelled 13 H BUN Cancelled 37 H Creatinine Cancelled 1.51 H Est Cr Clr Drug Dosing Cancelled 50.6 eGFR Cancelled 50.31 BUN/Creatinine Ratio Cancelled 24.5 H Glucose Cancelled 132 H Calcium Cancelled 9.3 Magnesium Cancelled 1.7 Total Bilirubin Cancelled 0.6 AST Cancelled 23 ALT Cancelled 14 Alkaline Phosphatase Cancelled 73 Troponin I High Sens Cancelled 8.2 Total Protein Cancelled 7.8 Albumin Cancelled 4.1 Globulin Cancelled 3.7 Albumin/Globulin Ratio Cancelled 1.1 Lipase Cancelled 53 Diagnostic Findings Abdomen/Pelvis CT 05/31/24 14:[address] WITHOUT CONTRAST CT DOSE: 868.74 mGy.cm HISTORY: Abdominal pain poss perf TECHNIQUE: Multiaxial CT images of the abdomen and pelvis were performed without contrast. Sagittal and coronal reconstructions were done. A dose lowering technique was utilized adhering to the principles of ALARA. COMPARISON STUDY: None FINDINGS: The lung bases are negative. The bone windows demonstrate bilateral L5 pars defects with a grade 1 spondylolisthesis of L5 on S1. There is no evidence of free air. There is pericolonic inflammation involving the splenic flexure of the colon with no associated diverticula identified. There is no evidence of bowel obstruction. There is a large ventral abdominal wall hernia containing numerous loops of large and small bowel. There is a stone in the neck of the gallbladder. There is no gallbladder wall thickening or pericholecystic fluid. There is no gallbladder or bile duct distention. There is no hepatic lesion identified on this noncontrast study. There is no hydronephrosis. There are bilateral renal vascular calcifications. There is fatty infiltration of both limbs of the left adrenal gland. The pancreas demonstrates fatty atrophy. There are no splenic lesions identified. There is no aortic aneurysm. The origin of the celiac axis is tortuous and ill- defined. 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 There is no aortic aneurysm. There is no periaortic adenopathy. In the pelvis, there is asymmetric thickening of the orona of the distal sigmoid colon suspicious for a mass. The appendix is not identified. There is mild diffuse bladder wall thickening. There is no significant prostate gland enlargement. IMPRESSION: No evidence of bowel obstruction or perforation. Pericolonic inflammation in the vicinity of the splenic flexure without a definite diverticulum present. Possibilities include occult diverticulitis, epiploic appendagitis and focal colitis. Asymmetric thickening of the wall of the sigmoid colon suspicious for a mass. Cholelithiasis. Large ventral abdominal wall hernia. 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 Please refer to the body the report for additional nonacute findings. ACT 112: Negative or not required by law. The above report was generated using voice recognition software. It may contain grammatical, syntax or spelling errors. Electronically signed by: Rossana Madrid M.D. 05/31/2024 3:17 PM Chest X-Ray 05/31/24 14:24 XR chest 1V portable CLINICAL HISTORY: abd pain COMPARISON STUDY: None FINDINGS: Single view portable chest demonstrates hyperlucency in the upper lung zones with diaphragmatic flattening suggesting emphysema. There is no focal airspace opacity or pleural effusion. There is no atelectasis or pneumothorax. The heart and pulmonary vascularity are unremarkable. IMPRESSION: No acute process; probable COPD. ACT 112: Negative or not required by law. Electronically signed by: Rossana Madrid M.D. 05/31/2024 3:18 PM EKG - my reading - NSR, right axis deviation, early repol anteroseptal leads, no ST changes Code Status & VTE Plan Code Status full code PG Care Time/CCT Total # of Minutes Spent Total Time Spent with Patient: Total time spent is greater than 50% in coordination of care (as documented) at patient's floor/unit and/or counseling patient: Coding Level of Care Code 57336 INT INP/OBS CARE 3/75MIN Diagnoses Abdominal pain R10.[address] scan, pelvis R93.5 Ileostomy status Z93.2 Tobacco dependence F17.200 Ventral hernia without obstruction or gangrene K43.9 History of colon resection Z90.49 Chronic obstructive pulmonary disease J44.9 Uvular hypertrophy K13.79 Chronic kidney disease, stage 3a N18.31 History of alcohol dependence F10.21
[2024-05-31 17:04] LABS: Troponin I High Sensitivity 8.2 pg/ml (0-20)
[2024-05-31] MEDS: HYDROmorphone INJ 0.5 MG/0.5 ML SYR IV STA (17:24)
[2024-05-31 18:08] LABS: Albumin Level 4.1 gm/dl (3.4-5.0); Bilirubin,Total 0.6 mg/dl (0.2-1.0); Calcium 9.3 mg/dl (8.6-10.3); Magnesium 1.7 mg/dl (1.7-2.4); Potassium 4.3 mmol/L (3.5-5.1)
[2024-05-31 18:14] LABS: Albumin Globulin Ratio 1.1 (0.9-2); BUN Creatinine Ratio 24.5 (10-20); Creatinine Clr Calc Pharmacy 50.6 ml/min; Globulin 3.7 gm/dl (2.5-4.0); Total Protein 7.8 gm/dl (6.0-8.3)
[2024-05-31] MEDS: 5% GLUCOSE AND NSS 1,000 ML IV SCH (18:46)
[2024-05-31] MEDS ORDERED: ONDANSETRON INJ 2 MG/ML 2 ML VIAL IV PRN (19:27)
[2024-05-31] MEDS: PIPERACILLIN/TAZOBACTAM 4.5 GM/100 ML BAG IV SCH (20:49)
[2024-05-31] MEDS: HYDROmorphone INJ 0.5 MG/0.5 ML SYR IV PRN (21:30)
[2024-05-31 21:56] LABS: Amphetamines+Metham, Urine Neg (Neg); Barbiturates, Urine Neg (Neg); Benzodiazepine, Urine Neg (Neg); Cocaine, Urine Neg (Neg); Fentanyl, Urine Neg (Neg); MDMA (Ecstacy), Urine Neg (Neg); Marijuana, Urine Pos (Neg); Methadone, Urine Neg (Neg); Opiate, Urine Pos (Neg); Phencyclidine, Urine Neg (Neg)
[2024-05-31] MEDS: busPIRone 5 MG TAB PO SCH (22:08)
[2024-05-31] MEDS: OLANZapine 5 MG TABLET PO SCH (22:08)
[2024-06-01 08:02] LABS: Hemoglobin 13.6 g/dl (14.0-18.0); Mean Corpuscular Hemoglobin 29.1 pg (25.0-34.0); Mean Corpuscular Volume 85.5 fL (80.0-100.0); Mean Platelet Volume 10.1 fL (9.4-12.4); Platelet Count 193 K/uL (130-400); RDW Coefficient of Variation 13.2 % (11.5-14.5); Red Blood Count 4.68 M/uL (4.70-6.10); White Blood Count 12.93 K/ul (4.8-10.8)
[2024-06-01 08:15] LABS: BUN Creatinine Ratio 25.8 (10-20); Calcium 8.3 mg/dl (8.6-10.3); Creatinine Clr Calc Pharmacy 63.6 ml/min
--- NOTE | 2024-06-01 08:31 | Surgery Progress Note ---
Date of Service June 01, 2024 Assessment & Plan (1) Abdominal pain: Plan: Patient still with diffuse abdominal pain and tenderness. States he feels slightly improved. Does have a leukocytosis this am to 12.93 and is afebrile. Continue with IV abx for now and keep NPO. He may be OOB with assistance as tolerated. He may have chemical DVT ppx for now. Surgery will continue to follow. Admission and Anticipated Discharge Date Admission Date: May 31, 2024 Subjective Patient sleeping but is arousable and communication. he reports mild improvement in his pain since yesterday, but it remains. No nausea/vomiting. Ostomy functioning and he believes he is passing contents per rectum. Physical Exam Physical Exam: resting eyes closed, in no distress. but will awaken to voice and communicate Gastrointestinal (Abdomen): Inspection/Auscultation: + abdominal surgical scar; abdomen not distended Percussion/Palpation: + abdomen tender (generali zed discomfort to palpation ) and abdomen soft + ostomy is functioning with liquid stoo l Results & Data Vital Signs (Past 12 Hours) Vital Signs Temp Pulse Pulse Pulse Resp BP BP 06/01/24 07:42 97.9 F 83 20 125/67 06/01/24 04:21 98.1 F 82 18 132/75 06/01/24 00:21 81 05/31/24 23:46 97.9 F 68 16 124/68 05/31/24 23:43 97.7 F 74 18 145/78 H 05/31/24 21:36 154/75 H Pulse Ox O2 Del Method O2 Flow Rate 06/01/24 07:42 93 Room Air 06/01/24 04:21 98 Nasal Cannula 2 06/01/24 00:21 05/31/24 23:46 96 Room Air 05/31/24 23:43 97 Nasal Cannula 2 05/31/24 21:36 PG Care Time/CCT Total # of Minutes Spent Total Time Spent with Patient: Total time spent is greater than 50% in coordination of care (as documented) at patient's floor/unit and/or counseling patient: Coding Level of Care Code 13878 SUB INP/OBS CARE 03/25MIN Diagnoses Abdominal pain R10.9
[2024-06-01] MEDS: PANTOprazole 40 MG/10 ML SYR IV SCH (09:20)
[2024-06-01] MEDS: UMECLIDINIUM/VILANTEROL 62.5/25MCG 7 PUFFS/INHALER INH SCH (09:21)
[2024-06-01 09:36] LABS: Hep B Surface Ag with confirm Negative (Negative)
[2024-06-01] MEDS: SERTRALINE HCL 100 MG TABLET PO SCH (09:38)
[2024-06-01] MEDS: IPRATROPIUM BROMIDE NASAL SPRAY 0.03% 30 ML NAE SCH (09:39)
[2024-06-01 10:18] LABS: Hep C Ab Rflx HepCQuant RNA Prelim Positive (Negative)
[2024-06-01 12:11] LABS: Hematocrit (blood only) 39.6 % (42.0-52.0); Hemoglobin 13.2 g/dl (14.0-18.0)
--- NOTE | 2024-06-01 12:33 | Gastroenterology Progress Note ---
Date of Service June 01, 2024 Assessment & Plan (1) Abnormal CT scan, pelvis: Plan: I am confused as to what is going on here. Discussed with Dr. Duque who insisted patient only has "12"" of colon left. CT here shows quite a bit of colon in his abdomen. No signs of perforation. Some "splenic flexure" inflammation and ? mass in sigmoid. If he doesn't improve would consider transfer to [place]. He does have records from prior surgery on CD (he says) if someone has access to CD drive to print them off. Admission and Anticipated Discharge Date Admission Date: May 31, 2024 Subjective Still in pain, sedated from meds. Physical Exam Physical Exam: Sedated but wakes up for questions Constitutional: WD/WN, vitals as above Results & Data Vital Signs (Past 12 Hours) Vital Signs Temp Pulse Pulse Resp BP Pulse Ox O2 Del Method 06/01/24 11:53 36.8 C 75 20 112/65 93 Room Air 06/01/24 10:27 Room Air 06/01/24 09:53 74 06/01/24 07:42 36.6 C 83 20 125/67 93 Room Air 06/01/24 04:21 36.7 C 82 18 132/75 98 Nasal Cannula O2 Flow Rate 06/01/24 11:53 06/01/24 10:27 06/01/24 09:53 06/01/24 07:42 06/01/24 04:21 2
--- NOTE | 2024-06-01 13:18 | Hospitalist Progress Note ---
Date of Service June 01, 2024 Assessment & Plan (1) Abdominal pain: Plan: Diffuse. Apparently he had an episode of hematochezia last evening, May 31. Surgery consultation and GI consultations noted. There appears to be some disagreement as to how much colon is left after his previous surgery. GI service has recommended transfer to a tertiary care center if he does not improve. He is currently n.p.o. on IV fluids. (2) Abnormal CT scan, pelvis: Plan: On admission. Reviewed. (3) Ileostomy status: Plan: Currently functioning. (4) Tobacco dependence: Plan: Nicotine patch if needed (5) Ventral hernia without obstruction or gangrene: Plan: No evidence of obstruction seen on admission CT scan (6) Chronic obstructive pulmonary disease: Plan: Stable. Continue current medical management (7) Chronic kidney disease, stage 3a: Plan: Monitor urine output. Serial labs (8) History of alcohol dependence: Plan: Supportive care Plan Possible transfer to tertiary care center if he does not improve. Continue n.p.o. status along with IV fluids and pain control measures for now. Serial H&H ordered. Transfuse as necessary if lower GI bleeding persists Admission and Anticipated Discharge Date Admission Date: May 31, 2024 Subjective Awake but lethargic. He is able to converse. He has diffuse abdominal pain. Surgery and GI entries noted. GI has recommended transfer to a tertiary care hospital due to the complexity of the case, previous surgeries, and possible need for colonoscopy. Apparently he had a bloody stool last evening. Hemoglobin is stable and will be monitored every 8 hours. Creatinine has improved down to 1.2. He remains n.p.o. and on IV fluids Review of Systems 2 Review of Systems: Constitutionalno fever or chills ENTno blurred vision, no double vision, no epistaxis, no sore throat Respiratoryno cough, no wheezing, no shortness of breath Cardiacno palpitations, no chest pain, no syncope GIthe patient is complaining of diffuse abdominal discomfort and nausea. He did have hematochezia last evening GUno urinary retention, no urinary incontinence, no dysuria, no hematuria Musculoskeletalno joint pain, no muscle tenderness Skinno bruising, no rashes, no pruritus Neurono isolated weakness, no paresthesia Psychno depression, no anxiety Physical Exam 2 Physical Exam: General-alert and oriented x3, no fever, no chills HEENT-head atraumatic and normocephalic, pupils equal and reactive to light, extraocular muscles intact Neck-no lymphadenopathy or thyromegaly, trachea midline Chest-clear to auscultation. No rales, wheezing or rhonchi Cardiac-regular rate and rhythm, normal S1 and S2 Abdomen-multiple scars from previous surgery. Diffusely tender. No palpable masses. No overt rebound or guarding. Functioning colostomy present. No ascitic wave Extremities-no cyanosis, clubbing, or edema Neuro-cranial nerves II through XII intact, motor and sensory function within normal limits, strength symmetrical, no focal deficits Psych-normal affect, normal mood Results & Data Results & Data Vital Signs (Past 12 Hours) Vital Signs Temp Pulse Pulse Resp BP Pulse Ox O2 Del Method 06/01/24 11:53 36.8 C 75 20 112/65 93 Room Air 06/01/24 10:27 Room Air 06/01/24 09:53 74 06/01/24 07:42 36.6 C 83 20 125/67 93 Room Air 06/01/24 04:21 36.7 C 82 18 132/75 98 Nasal Cannula O2 Flow Rate 06/01/24 11:53 06/01/24 10:27 06/01/24 09:53 06/01/24 07:42 06/01/24 04:21 2 Laboratory Results 06/01/24 11:56 06/01/24 07:21 PG Care Time/CCT Total # of Minutes Spent Total Time Spent with Patient: Total time spent is greater than 50% in coordination of care (as documented) at patient's floor/unit and/or counseling patient: Coding Level of Care Code 32629 SUB INP/OBS CARE 3/50MIN Diagnoses Abdominal pain R10.[address] scan, pelvis R93.5 Ileostomy status Z93.2 Tobacco dependence F17.200 Ventral hernia without obstruction or gangrene K43.9 Chronic obstructive pulmonary disease J44.9 Chronic kidney disease, stage 3a N18.31 History of alcohol dependence F10.21
[2024-06-01] MEDS: HYDROmorphone INJ 0.5 MG/0.5 ML SYR IV PRN (18:41)
[2024-06-01 20:36] LABS: Hematocrit (blood only) 39.2 % (42.0-52.0); Hemoglobin 13.2 g/dl (14.0-18.0)
[2024-06-02 06:45] LABS: Basophils # (auto) 0.07 K/uL (0.00-0.20); Basophils % (auto) 0.7 %; Eosinophils # (auto) 0.09 K/uL (0.00-0.50); Eosinophils % (auto) 0.9 %; Hematocrit (blood only) 40.5 % (42.0-52.0); Hemoglobin 13.5 g/dl (14.0-18.0); Immature Granulocytes # (auto) 0.03 K/uL (0.01-0.20); Immature Granulocytes % (auto) 0.3 %; Lymphocytes # (auto) 1.15 K/uL (1.20-3.40); Lymphocytes % (auto) 11.7 %; Mean Corpuscular Hemoglobin 28.8 pg (25.0-34.0); Mean Corpuscular Hgb Conc 33.3 g/dL (32.0-36.0); Mean Corpuscular Volume 86.4 fL (80.0-100.0); Mean Platelet Volume 9.7 fL (9.4-12.4); Monocytes # (auto) 0.47 K/uL (0.11-0.59); Monocytes % (auto) 4.8 %; Neutrophils % (auto) 81.6 %; Platelet Count 166 K/uL (130-400); RDW Coefficient of Variation 13.2 % (11.5-14.5); RDW Standard Deviation 41.6 fL (36.4-46.3); Red Blood Count 4.69 M/uL (4.70-6.10); White Blood Count 9.81 K/ul (4.8-10.8)
[2024-06-02 07:13] LABS: BUN Creatinine Ratio 17.8 (10-20); Calcium 8.5 mg/dl (8.6-10.3); Creatinine Clr Calc Pharmacy 59.2 ml/min; Potassium 3.7 mmol/L (3.5-5.1)
--- NOTE | 2024-06-02 11:06 | Gastroenterology Progress Note ---
Date of Service June 02, 2024 Assessment & Plan (1) Abnormal CT scan, pelvis: Plan: Our service has taken over for Dr. Forde today. Patient still with significant abdominal pain. Patient had discussed with Dr. Forde about transfer to [place] for further evaluation of his imaging findings / pain. He was planning to follow there for reversal of his ostomy. Patient is requesting that we proceed as recommended by Dr. Forde and have him transferred for further evaluation. Admission and Anticipated Discharge Date Admission Date: May 31, 2024 Supervising Physician Co-Signing Physician Notes I personally saw and examined the patient. I have reviewed the chart and agree with the documentation provided by the MECHANICAL OPERATOR including discussion about the assessment, treatment and plan. Briefly, his belly is soft but he is continuing to complain of severe abdominal pain. I think in the tertiary care eval at [place] and if his workup is negative, he can get reconnected. Subjective Patient admits that he still has significant abdominal pain that is no better. he is requesting transfer to [place] as was discussed with Dr. Forde yesterday. Review of Systems Review of Systems: All systems reviewed & are unremarkable except as noted in HPI & below Physical Exam Gastrointestinal (Abdomen): diffuse abdominal tenderness to palpation, ostomy noted in RLQ. green stool. Results & Data Results & Data Vital Signs (Past 12 Hours) Vital Signs Temp Pulse Pulse Resp BP Pulse Ox O2 Del Method 06/02/24 08:05 97.9 F 86 20 155/85 H 91 Room Air 06/02/24 07:48 Room Air 06/02/24 07:16 85 06/02/24 02:44 97.9 F 82 16 147/75 H 91 Nasal Cannula O2 Flow Rate 06/02/24 08:05 06/02/24 07:48 06/02/24 07:16 06/02/24 02:44 2 Coding Level of Care Code 50500 SUB INP/OBS CARE 03/25MIN Diagnoses Abnormal CT scan, pelvis R93.5
--- NOTE | 2024-06-02 12:10 | Hospitalist Progress Note ---
Date of Service June 02, 2024 Assessment & Plan (1) Abdominal pain: Plan: Pericolonic inflammation in the region of the splenic flexure seen on admission CT scan. No further hematochezia. Hemoglobin is stable. May 31. Surgery consultation and GI consultations noted. Both recommend transfer to a tertiary care center due to his complicated past history. Awaiting callback from [facility]. Clear liquid diet has been ordered. IV fluids have been tapered down (2) Abnormal CT scan, pelvis: Plan: Pericolonic inflammation in the region of the splenic flexure seen on admission. No overt diverticulitis. Continue intravenous Zosyn, day 3 (3) Ileostomy status: Plan: Currently functioning. Previous history of colonic resection due to diverticulosis (4) Tobacco dependence: Plan: Nicotine patch if needed (5) Ventral hernia without obstruction or gangrene: Plan: No evidence of obstruction seen on admission CT scan (6) Chronic obstructive pulmonary disease: Plan: Stable. Continue current medical management (7) Chronic kidney disease, stage 3a: Plan: Acute on chronic disease present on admission. Creatinine was 1.5 on admission and has now returned to baseline at 1.2 with IV fluids. Monitor urine output. Serial labs (8) History of alcohol dependence: Plan: Supportive care Plan Possible transfer to tertiary care center if he will accept. Clear liquid diet has been ordered and IV fluids tapered down. Continue Zosyn antibiotic and pain control measures. Admission and Anticipated Discharge Date Admission Date: May 31, 2024 Subjective Alert and oriented. Vital signs are stable. He is afebrile. He continues to complain of abdominal pain and request to be transferred to [facility]. I have initiated a phone call to them and I am waiting for a call back. White count has decreased from 12,000 down to 9000. He remains on intravenous Zosyn, day 3. Admission CT scan revealed splenic flexure pericolonic inflammation without obstruction. Clear liquid diet has been started. IV fluids have been tapered down. Creatinine normalized to 1.2 with IV fluids. No further rectal bleeding. Hemoglobin is stable. Review of Systems 2 Review of Systems: Constitutionalno fever or chills ENTno blurred vision, no double vision, no epistaxis, no sore throat Respiratoryno cough, no wheezing, no shortness of breath Cardiacno palpitations, no chest pain, no syncope GIcontinued complaints of diffuse abdominal discomfort and nausea. No further hematochezia however GUno urinary retention, no urinary incontinence, no dysuria, no hematuria Musculoskeletalno joint pain, no muscle tenderness Skinno bruising, no rashes, no pruritus Neurono isolated weakness, no paresthesia Psychno depression, no anxiety Physical Exam 2 Physical Exam: General-alert and oriented x3, no fever, no chills HEENT-head atraumatic and normocephalic, pupils equal and reactive to light, extraocular muscles intact Neck-no lymphadenopathy or thyromegaly, trachea midline Chest-clear to auscultation. No rales, wheezing or rhonchi Cardiac-regular rate and rhythm, normal S1 and S2 Abdomen-multiple scars from previous surgery. Diffusely tender. No palpable masses. No overt rebound or guarding. Functioning colostomy present. No ascitic wave Extremities-no cyanosis, clubbing, or edema Neuro-cranial nerves II through XII intact, motor and sensory function within normal limits, strength symmetrical, no focal deficits Psych-normal affect, normal mood Results & Data Results & Data Vital Signs (Past 12 Hours) Vital Signs Temp Pulse Pulse Resp BP Pulse Ox O2 Del Method 06/02/24 11:17 36.5 C 83 20 150/79 H 90 Room Air 06/02/24 08:05 36.6 C 86 20 155/85 H 91 Room Air 06/02/24 07:48 Room Air 06/02/24 07:16 85 06/02/24 02:44 36.6 C 82 16 147/75 H 91 Nasal Cannula O2 Flow Rate 06/02/24 11:17 06/02/24 08:05 06/02/24 07:48 06/02/24 07:16 06/02/24 02:44 2 Laboratory Results 06/02/24 06:10 06/02/24 06:10 PG Care Time/CCT Total # of Minutes Spent Total Time Spent with Patient: Total time spent is greater than 50% in coordination of care (as documented) at patient's floor/unit and/or counseling patient: Coding Level of Care Code 45635 SUB INP/OBS CARE 3/50MIN Diagnoses Abdominal pain R10.[address] scan, pelvis R93.5 Ileostomy status Z93.2 Tobacco dependence F17.200 Ventral hernia without obstruction or gangrene K43.9 Chronic obstructive pulmonary disease J44.9 Chronic kidney disease, stage 3a N18.31 History of alcohol dependence F10.21
[2024-06-02] MEDS: guaiFENesin 600 MG TABCR PO SCH (12:56)
[2024-06-02] MEDS: SODIUM CHLORIDE 0.9% 1,000 ML IV SCH (12:57)
[2024-06-02 13:14] LABS: Hematocrit (blood only) 41.5 % (42.0-52.0); Hemoglobin 13.9 g/dl (14.0-18.0)
--- NOTE | 2024-06-02 13:40 | Surgery Progress Note ---
Date of Service June 02, 2024 Assessment & Plan (1) History of colon resection: Plan: Complex patient with unclear surgical history. I agree with plans for transfer to [place]. Awaiting placement. Will be available for any urgent needs until he gets transferred (2) Ventral hernia without obstruction or gangrene: (3) Abnormal CT scan, pelvis: (4) Ileostomy status: Admission and Anticipated Discharge Date Admission Date: May 31, 2024 Subjective Patient seen. He appears comfortable however continues to complain of lower abdominal discomfort. Physical Exam Constitutional: WD/WN, vitals as above no acute distress and not ill appearing Eyes: PERRL, conjunctivae normal, anicteric sclerae EOM intact bilaterally ENMT: external ear and nose normal, oropharynx normal Ears: no hearing impairment Neck: trachea midline, no thyromegaly Respiratory: normal respiratory effort; no respiratory distress and does not use accessory muscles Cardiovascular: Rate/Rhythm: regular rate and regular rhythm Gastrointestinal (Abdomen): Soft. Mild lower abdominal tenderness. Stoma intact and functioning. No evidence of peritonitis. Large ventral hernia. Skin: no rashes, warm and dry Psychiatric: Orientation: alert, oriented x 3 and cooperative Results & Data Vital Signs (Past 12 Hours) Vital Signs Temp Pulse Pulse Resp BP Pulse Ox O2 Del Method 06/02/24 11:17 36.5 C 83 20 150/79 H 90 Room Air 06/02/24 08:05 36.6 C 86 20 155/85 H 91 Room Air 06/02/24 07:48 Room Air 06/02/24 07:16 85 06/02/24 02:44 36.6 C 82 16 147/75 H 91 Nasal Cannula O2 Flow Rate 06/02/24 11:17 06/02/24 08:05 06/02/24 07:48 06/02/24 07:16 06/02/24 02:44 2 PG Care Time/CCT Total # of Minutes Spent Total Time Spent with Patient: Total time spent is greater than 50% in coordination of care (as documented) at patient's floor/unit and/or counseling patient: Coding Level of Care Code 53473 SUB INP/OBS CARE 2/35MIN Diagnoses History of colon resection Z90.49 Ventral hernia without obstruction or gangrene K43.[address] scan, pelvis R93.5 Ileostomy status Z93.2
[2024-06-02] MEDS: TROLAMINE SALICYLATE 10% CRM 255 APPLN/85 GM TUBE EXT PRN (20:22)
[2024-06-03 06:34] LABS: Basophils # (auto) 0.08 K/uL (0.00-0.20); Basophils % (auto) 1.1 %; Eosinophils # (auto) 0.21 K/uL (0.00-0.50); Eosinophils % (auto) 2.8 %; Hematocrit (blood only) 39.5 % (42.0-52.0); Hemoglobin 13.1 g/dl (14.0-18.0); Immature Granulocytes # (auto) 0.02 K/uL (0.01-0.20); Immature Granulocytes % (auto) 0.3 %; Lymphocytes # (auto) 1.46 K/uL (1.20-3.40); Lymphocytes % (auto) 19.3 %; Mean Corpuscular Hemoglobin 28.9 pg (25.0-34.0); Mean Corpuscular Hgb Conc 33.2 g/dL (32.0-36.0); Mean Platelet Volume 9.7 fL (9.4-12.4); Monocytes # (auto) 0.46 K/uL (0.11-0.59); Monocytes % (auto) 6.1 %; Neutrophils # (auto) 5.34 K/uL (1.40-6.50); Neutrophils % (auto) 70.4 %; Platelet Count 172 K/uL (130-400); RDW Coefficient of Variation 13.2 % (11.5-14.5); RDW Standard Deviation 41.6 fL (36.4-46.3); Red Blood Count 4.54 M/uL (4.70-6.10); White Blood Count 7.57 K/ul (4.8-10.8)
[2024-06-03 06:49] LABS: BUN Creatinine Ratio 15.4 (10-20); Calcium 8.2 mg/dl (8.6-10.3); Creatinine Clr Calc Pharmacy 58.7 ml/min; Potassium 3.7 mmol/L (3.5-5.1)
--- NOTE | 2024-06-03 14:39 | Hospitalist Progress Note ---
Date of Service June 03, 2024 Assessment & Plan (1) Abdominal pain: Plan: Pericolonic inflammation in the region of the splenic flexure seen on admission CT scan. No further hematochezia. Hemoglobin is stable. Diet has been advanced and IV fluids tapered down further. Surgery consultation and GI consultations noted. I spoke to [facility] and they state that treatment can continue here rather than transfer. There would be no change in treatment if he were to go to [place] at this point. The patient is aware. (2) Abnormal CT scan, pelvis: Plan: Pericolonic inflammation in the region of the splenic flexure seen on admission. Probably diverticulitis. Improving with intravenous Zosyn, day 4. (3) Ileostomy status: Plan: Currently functioning. Previous history of colonic resection due to diverticulosis (4) Tobacco dependence: Plan: Nicotine patch if needed (5) Ventral hernia without obstruction or gangrene: Plan: No evidence of obstruction seen on admission CT scan (6) Chronic obstructive pulmonary disease: Plan: Stable. Continue current medical management (7) Chronic kidney disease, stage 3a: Plan: Acute on chronic disease present on admission. Creatinine was 1.5 on admission and has now returned to baseline at 1.2 with IV fluids. Monitor urine output. Serial labs (8) History of alcohol dependence: Plan: Supportive care Plan Hopeful discharge to home on oral antibiotic tomorrowJune 04 Admission and Anticipated Discharge Date Admission Date: May 31, 2024 Subjective Alert and oriented. He appears to be improving. White blood cell count is trending down. He remains on intravenous Zosyn, day 4. Diet has been advanced to full liquids and IV fluids tapered down further. Hopefully he can go home on an oral antibiotic tomorrow, June 04 Review of Systems 2 Review of Systems: Constitutionalno fever or chills ENTno blurred vision, no double vision, no epistaxis, no sore throat Respiratoryno cough, no wheezing, no shortness of breath Cardiacno palpitations, no chest pain, no syncope GIcontinued complaints of diffuse abdominal discomfort and nausea. No further hematochezia however GUno urinary retention, no urinary incontinence, no dysuria, no hematuria Musculoskeletalno joint pain, no muscle tenderness Skinno bruising, no rashes, no pruritus Neurono isolated weakness, no paresthesia Psychno depression, no anxiety Physical Exam 2 Physical Exam: General-alert and oriented x3, no fever, no chills HEENT-head atraumatic and normocephalic, pupils equal and reactive to light, extraocular muscles intact Neck-no lymphadenopathy or thyromegaly, trachea midline Chest-clear to auscultation. No rales, wheezing or rhonchi Cardiac-regular rate and rhythm, normal S1 and S2 Abdomen-multiple scars from previous surgery. Diffusely tender. No palpable masses. No overt rebound or guarding. Functioning colostomy present. No ascitic wave Extremities-no cyanosis, clubbing, or edema Neuro-cranial nerves II through XII intact, motor and sensory function within normal limits, strength symmetrical, no focal deficits Psych-normal affect, normal mood Results & Data Results & Data Vital Signs (Past 12 Hours) Vital Signs Temp Pulse Pulse Resp BP BP Pulse Ox 06/03/24 11:14 36.6 C 79 18 159/84 H 97 06/03/24 08:40 36.0 C L 85 20 147/75 H 90 06/03/24 08:00 06/03/24 07:00 75 06/03/24 03:39 36.5 C 79 18 137/73 92 O2 Del Method O2 Flow Rate 06/03/24 11:14 Room Air 06/03/24 08:40 Room Air 06/03/24 08:00 Room Air 06/03/24 07:00 06/03/24 03:39 Nasal Cannula 1 Laboratory Results 06/03/24 06:12 06/03/24 06:12 PG Care Time/CCT Total # of Minutes Spent Total Time Spent with Patient: Total time spent is greater than 50% in coordination of care (as documented) at patient's floor/unit and/or counseling patient: Coding Level of Care Code 60596 SUB INP/OBS CARE 2/35MIN Diagnoses Abdominal pain R10.[address] scan, pelvis R93.5 Ileostomy status Z93.2 Tobacco dependence F17.200 Ventral hernia without obstruction or gangrene K43.9 Chronic obstructive pulmonary disease J44.9 Chronic kidney disease, stage 3a N18.31 History of alcohol dependence F10.21
[2024-06-03] MEDS: ACETAMINOPHEN 325 MG TAB PO PRN (23:08)
[2024-06-03 23:58] VITALS: O2SAT 95
[2024-06-04 07:28] LABS: Basophils # (auto) 0.08 K/uL (0.00-0.20); Basophils % (auto) 1.1 %; Eosinophils # (auto) 0.29 K/uL (0.00-0.50); Hematocrit (blood only) 38.6 % (42.0-52.0); Immature Granulocytes # (auto) 0.02 K/uL (0.01-0.20); Immature Granulocytes % (auto) 0.3 %; Lymphocytes # (auto) 1.27 K/uL (1.20-3.40); Lymphocytes % (auto) 17.4 %; Mean Corpuscular Hemoglobin 28.6 pg (25.0-34.0); Mean Corpuscular Hgb Conc 33.7 g/dL (32.0-36.0); Mean Corpuscular Volume 84.8 fL (80.0-100.0); Mean Platelet Volume 9.9 fL (9.4-12.4); Monocytes # (auto) 0.48 K/uL (0.11-0.59); Monocytes % (auto) 6.6 %; Neutrophils # (auto) 5.17 K/uL (1.40-6.50); Neutrophils % (auto) 70.6 %; Platelet Count 189 K/uL (130-400); RDW Coefficient of Variation 12.8 % (11.5-14.5); RDW Standard Deviation 39.3 fL (36.4-46.3); Red Blood Count 4.55 M/uL (4.70-6.10); White Blood Count 7.31 K/ul (4.8-10.8)
[2024-06-04 07:44] LABS: BUN Creatinine Ratio 11.1 (10-20); Calcium 8.8 mg/dl (8.6-10.3); Creatinine Clr Calc Pharmacy 60.6 ml/min; Potassium 3.4 mmol/L (3.5-5.1)
[2024-06-04 08:22] VITALS: RESP 20; TEMP 97.7
[2024-06-04] MEDS: POTASSIUM CHLORIDE CRTAB 20 MEQ TABCR PO STA (08:43)
--- NOTE | 2024-06-04 10:30 | Discharge Summary ---
Discharge Summary Date of Service June 04, 2024 Principal Dx & Hospital Course #1 = Principal Diagnosis (1) Abdominal pain: Pericolonic inflammation in the region of the splenic flexure seen on admission CT scan. No further hematochezia. Hemoglobin is stable. Diet has been advanced. Surgery consultation and GI consultations noted. I spoke to [facility] and they state that treatment can continue here rather than transfer. There would be no change in treatment if he were to go to [place] at this point. The patient is aware. (2) Abnormal CT scan, pelvis: Pericolonic inflammation in the region of the splenic flexure seen on admission. Probably diverticulitis. Improved with intravenous Zosyn, day 5. Discharge to home on oral Augmentin therapy (3) Ileostomy status: Currently functioning. Previous history of colonic resection due to diverticulosis (4) Tobacco dependence: Nicotine patch if needed (5) Ventral hernia without obstruction or gangrene: No evidence of obstruction seen on admission CT scan (6) Chronic obstructive pulmonary disease: Stable. Continue current medical management (7) Chronic kidney disease, stage 3a: Acute on chronic disease present on admission. Creatinine was 1.5 on admission and has now returned to baseline at 1.2 with IV fluids. Monitor urine output. Serial labs (8) History of alcohol dependence: Supportive care Plan Home today, June 04, on Augmentin for 1 more week. Follow-up with primary care provider soon as possible. Admission HPI Per Admitting Provider 68yo male with history of colonic resection for diverticulitis complications (stricture?) at [facility] in 2014, ventral hernia, ileostomy creation at [facility] in 2014 (details uncertain), severe anxiety, tobacco dependence, ?heparitis B, throat cancer s/p radical neck dissection, CKD stage 3, and prior alcohol use presents with severe lower abdominal pain. Patient was scheduled to have a sigmoidoscopy by Dr Enrique Forde, [facility], to check the anatomy of presumed Blackmon's pouch and as a requisite for possible ileostomy reversal at [facility] in the future. In preparation for his s igmoidoscopy the patient was ordered [address] Forde to empty the contents of his colon/Blackmon's pouch. The patient went to the bathroom and proceeded to give himself the first enema. Within seconds he had severe abdominal pain in his lower quadrants along with sweats & nausea. The nursing staff in the endoscopy suite assisted him and he was brought to the ER for evaluation. CT scan of the abdomen/pelvis did not show perforation/free air but did show ? of a mass in the sigmoid colon as well as inflammatory changes in the splenic flexure of the colon. This CT also demonstrated his known ventral hernia containing multiple loops of bowel but no signs of obstruction. During my assessment he was writhing in pain despite having had 2 doses of IV morphine. He was also given IV zosyn x 1. He has not had any vomiting. Prior to the enema today he has had NO abdominal pain at home, no changes in his ileostomy output (empties the bag 4-5 times/day), and no blood/mucous via his [place] rectum. He does report he is passing contents of the enema at this time. About 1 year ago he lost about 30 pounds of weight, but since then has not had any further weight loss. He reports no changes in appetite. Records scanned in the EMR dated 04/2024 from [facility] colorectal surgery discuss possible ileostomy reversal. In preparation for such he was asked to have a sigmoidoscopy; hence that is why he presented today to [facility] Endo suite for his procedure. The details of his past surgical history are not fully certain. By report, in ~2014, he had complications from diverticulitis (diverticular stricture??) requiring partial colon resection at [facility]. Sometime later on in 2014 he developed a ventral hernia and went to [facility] for hernia repair. It is unclear if he had 1 or 2 surgeries during that stay, but one of the surgeries led to ileostomy creation. It is also unclear if the ventral hernia in 2015 was ever repaired. Discharge Exam General-alert and oriented x3, no fever, no chills HEENT-head atraumatic and normocephalic, pupils equal and reactive to light, extraocular muscles intact Neck-no lymphadenopathy or thyromegaly, trachea midline Chest-clear to auscultation. No rales, wheezing or rhonchi Cardiac-regular rate and rhythm, normal S1 and S2 Abdomen-multiple scars from previous surgery. Diffusely tender. No palpable masses. No overt rebound or guarding. Functioning colostomy present. No ascitic wave Extremities-no cyanosis, clubbing, or edema Neuro-cranial nerves II through XII intact, motor and sensory function within normal limits, strength symmetrical, no focal deficits Psych-normal affect, normal mood Discharge Plan Discharge Items Patient Disposition: Home - Self-Care Reason For Visit: COLITIS Discharge Diagnosis: Suspected acute diverticulitis, transient lower GI bleeding Condition on Discharge: Good Activity: Resume your previous activity Non-emergency contact: Primary Care Provider Call non-emergency contact if: your symptoms worsen Follow-up/Referrals: PCP,NO [Primary Care Provider] - Diet: Regular Addtl Attending Provider Instructions: Take amoxicillin/clavulanate twice daily for 1 more week. See primary care provider soon as possible for follow-up Pending Studies at Discharge: No Stand-Alone Forms: My [employer], Smoking Cessation Medications and DC Order Prescriptions: New amoxicillin-pot clavulanate 875-125 mg tablet 1 tab PO BID Qty: 14 0RF Continued sertraline [Zoloft] 100 mg tablet 200 mg PO QAM cholecalciferol (vitamin D3) 50 mcg (2,000 unit) capsule 50 mcg PO QAM multivitamin Tablet 1 tab PO QAM cyanocobalamin (vitamin B-12) 1,000 mcg capsule 1,000 mcg PO QAM buspirone [BuSpar] 10 mg Tablet 10 mg PO BID olanzapine [Zyprexa] 15 mg Tablet 15 mg PO HS ipratropium bromide 21 mcg (0.03 %) [place],Non-Aerosol 2 spray INTRANASAL QAM Rx Instructions: administer into each nostril Anoro Ellipta 62.5-25 mcg/actuation Blister With Device 1 inh INHALATION QAM echinacea 125 mg Capsule 125 mg PO QAM Rx Instructions: administer with meals Discharge Orders: Discharge Order (Routine); Ordered 06/04/24 Ordered By: Brendon Medley Admission Data Admit Date/Time: 05/31/24 17:33 Attending Provider: Brendon Medley Admit Provider: Patrick Dominique Primary Care Provider: PCP,NO Other Providers: Wesley Marie; Jony Mahajan; Patrick Dominique; Enrique Forde Hospital Stay Data Consultations 05/31/24 16:14 Consult General Surgery Stat 05/31/24 16:18 ED Decision to Admit Stat 05/31/24 16:32 ED Decision to Admit Stat 05/31/24 19:27 Consult Gastroenterology Routine Diagnostic Imagining Performed 05/31/24 14:24 CT abd pelvis wo con Stat Pending Results Patient Have Any Pending Studies at Discharge: No Discharge Instructions Given to Patient (Per Discharging Provider) Take amoxicillin/clavulanate twice daily for 1 more week. See primary care provider soon as possible for follow-up Total Time Total Time Spent Total Time Spent (In Minutes): 45 minutes Coding Level of Care Code 75714 INP/OBS DISCH >30 MIN Diagnoses Abdominal pain R10.[address] scan, pelvis R93.5 Ileostomy status Z93.2 Tobacco dependence F17.200 Ventral hernia without obstruction or gangrene K43.9 Chronic obstructive pulmonary disease J44.9 Chronic kidney disease, stage 3a N18.31 History of alcohol dependence F10.21
--- NOTE | 2024-06-04 11:07 | Surgery Progress Note ---
Date of Service June 04, 2024 Assessment & Plan (1) Ventral hernia without obstruction or gangrene: Plan: Doing much better clinically. Plan is discharge today. He is going to be following up with [facility] in the near future. (2) Abdominal pain: (3) Ileostomy status: Admission and Anticipated Discharge Date Admission Date: May 31, 2024 Subjective Patient seen. He is feeling a lot better. Tolerating diet. Currently no abdominal pain Physical Exam Constitutional: WD/WN, vitals as above no acute distress and not ill appearing Eyes: PERRL, conjunctivae normal, anicteric sclerae EOM intact bilaterally ENMT: external ear and nose normal, oropharynx normal Ears: no hearing impairment Neck: trachea midline, no thyromegaly Respiratory: normal respiratory effort; no respiratory distress and does not use accessory muscles Cardiovascular: Rate/Rhythm: regular rate and regular rhythm Gastrointestinal (Abdomen): Soft. Nontender. Exam much improved. Large ventral hernia. Stoma intact and functioning Skin: no rashes, warm and dry Psychiatric: Orientation: alert, oriented x 3 and cooperative Results & Data Vital Signs (Past 12 Hours) Vital Signs Temp Pulse Resp BP Pulse Ox O2 Del Method 06/04/24 08:21 36.5 C 91 H 20 165/83 H 95 Room Air 06/04/24 03:12 36.4 C L 69 16 152/86 H 95 Room Air PG Care Time/CCT Total # of Minutes Spent Total Time Spent with Patient: Total time spent is greater than 50% in coordination of care (as documented) at patient's floor/unit and/or counseling patient: Coding Level of Care Code 26769 SUB INP/OBS CARE 03/25MIN Diagnoses Ventral hernia without obstruction or gangrene K43.9 Abdominal pain R10.9 Ileostomy status Z93.2
[2024-06-04 12:35] VITALS: BP 137/73
[2024-06-04 13:18] VITALS: PULSE 86
[2024-06-04 16:10] LABS: Codeine Urine NEGATIVE ng/mL (<50); Hydrocodone Urine NEGATIVE ng/mL (<50); Hydromor Urine NEGATIVE ng/mL (<50); Marijuana Quant, GCMS Urine 85 ng/mL (<5); Morphine Urine 2680 ng/mL (<50); Norhydrocodone Conf Ur NEGATIVE ng/mL (<50); Noroxycodone Urine NEGATIVE ng/mL (<50); Oxycodone Urine NEGATIVE ng/mL (<50); Oxymorph Urine NEGATIVE ng/mL (<50)
[2024-06-05 13:48] LABS: Hepatitis C Vira RNA (Log) PCR <1.18 NOT DETECTED Log IU/mL (NOT DETECTED); Hepatitis C Viral RNA by PCR <15 NOT DETECTED IU/mL (NOT DETECTED)
== END 2024-06-04 15:57 | disposition home or self-care (01) | DRG 392 ==
LOC: ED 14:07 → EDINP 17:33 → SUATTDRO 17:33 → 2N 19:27